=== PATIENT | male | born 1995 | race African-American/Black ===

== ENCOUNTER 2020-12-20 08:35 | Emergency (ER) | payer OTHER ==
[~2020-12-20] VITALS: Ht 2.5 cm; Wt 77.3 kg
[2020-12-20 08:36] VITALS: TEMP 98
[2020-12-20 08:58] LABS: BASO % 1.2 % (0.0-2.0); EOS # 0.1 (0.0-0.7); EOS % 1.4 % (0-4.0); GRAN % 58.3 % (42.2-75.2); HEMATOCRIT 44.7 % (42.0-52.0); HEMOGLOBIN 14.7 g/dl (13.5-18.0); LYMPH # 1.1 (1.2-3.4); LYMPH % 30.4 % (20.0-51.0); MEAN CELL VOLUME 86 fl (80.0-100.0); MEAN CORPUSCULAR HEMOGLOBIN 28 pg (27.0-31.0); MEAN CORPUSCULAR HGB CONC 33 g/dl (33.0-37.0); MEAN PLATELET VOLUME 11.3 fl (7.4-10.4); MONO # 0.3 (0.1-0.6); MONO % 8.4 % (1.7-9.3); PLATELET COUNT 165 K/mm3 (130-400); RED BLOOD COUNT 5.19 M/mm3 (4.20-5.60); REDCELL DISTRIBUTION WIDTH-CV 12.6 % (11.5-14.5)
[2020-12-20 09:07] LABS: ALANINE AMINOTRANSFERASE 15 U/L (4-49); ALBUMIN 4.1 gm/dL (3.5-5.0); ALKALINE PHOSPHATASE 91 U/L (50-136); ANION GAP 7 mmol/L (7-16); AST,SGOT 26 U/L (15-37); BILIRUBIN,TOTAL 0.8 mg/dL (0.0-1.0); BLOOD UREA NITROGEN 11 mg/dL (9-20); CALCIUM 9.6 mg/dL (8.4-10.2); CARBON DIOXIDE 29 mmol/L (22-30); CHLORIDE 106 mmol/L (98-107); CREATININE, serum 1.19 (0.66-1.25); GLUCOSE 114 mg/dL (74-106); POTASSIUM 4.1 mmol/L (3.4-5.0); SODIUM 142 mmol/L (137-145); TOTAL PROTEIN 7.4 gm/dL (6.4-8.2)
[2020-12-20 09:25] LABS: TROPONIN-I < 0.012 ng/mL (0.000-0.035)
[2020-12-20 10:39] LABS: TRICYCLIC ANTIDEPRESS URINE NEGATIVE
[2020-12-20 12:46] VITALS: BP 125/89; PULSE 54
== END 2020-12-20 13:08 | disposition home or self-care (01) ==
LOC: COL.ER 08:35
PROVIDERS: Emergency Medicine
DX: R41.82 Altered mental status, unspecified (principal); D72.819 Decreased white blood cell count, unspecified; R00.1 Bradycardia, unspecified; Z87.891 Personal history of nicotine dependence; Z20.822 Contact with and (suspected) exposure to COVID-19
CPT/HCPCS: J2310